=== PATIENT | female | born 2000 | race Two or more races ===

== ENCOUNTER 2022-09-10 16:46 | Emergency (ER) | payer BC, OTHER ==
[~2022-09-10] VITALS: Ht 167.6 cm; Wt 69.0 kg
[2022-09-10 19:36] VITALS: BP 117/68
[2022-09-10] MEDS ORDERED: AMOX-277 PO (21:11)
[2022-09-10] MEDS ORDERED: OSEL75CA5 PO (21:11)
[2022-09-10] MEDS ORDERED: ACET-1158 PO (21:11)
== END 2022-09-10 21:18 | disposition home or self-care (01) ==
LOC: ER 16:46
DX: J10.1 Influenza due to other identified influenza virus with other respiratory manifestations (principal); Z20.822 Contact with and (suspected) exposure to COVID-19
CPT/HCPCS: 36415; 87426; 87804